=== PATIENT | female | born 1970 | race Caucasian/White ===

== ENCOUNTER 2020-09-24 22:43 | Emergency (ER) | payer OTHER ==
[~2020-09-24] VITALS: Ht 165.1 cm; Wt 90.7 kg
[2020-09-25 00:26] LABS: CALCIUM 8.4 mg/dL (8.5-10.1); CREATININE 1.1 mg/dL (0.6-1.0); POTASSIUM 4.1 mmol/L (3.5-5.1)
[2020-09-25 01:13] VITALS: BP 116/74
== END 2020-09-25 01:13 | disposition home or self-care (01) ==
LOC: ER 22:43
PROVIDERS: Emergency Medicine
DX: R32 Unspecified urinary incontinence (principal)